=== PATIENT | female | born 1995 | race Caucasian/White ===

== ENCOUNTER 2025-02-15 15:09 | Outpatient (CLI) | payer BC, SELFPAY ==
--- OUTSIDE RECORDS SUMMARY | 2025-02-15 15:17 | XMS_ITS | Encounter Summary ---
Author Organization [facility] Address [address] [place] [address] Care Team Providers Care Geodetic Advisor Name Role Phone Sushila Davila MD Primary Care Provider [phone] Reason for Visit * Reason Onset Date Comments Med Refill 10/11/2024 Encounter Details Date Type Department Care Team (Late st Contact Info) Description 10/11/2024 Refill [facility] [address] [place] [address] Ami Soto, POLE PEELING MACHINE OPERATOR HELPER [address] [place] [address] BMI 35.0-35.9,adult Social History Tobacco Use Types Packs/Day Years Used Date Smoking Tobacco: Never Passive Smoke Exposure: Never Smokeless Tobacco: Never Alcohol Use Standard Drinks/Week Comments Never 0 (1 standard drink = 0.6 oz pur e alcohol) Humiliation, Afraid, Rape, and Kick questionnair e Answer Date Recorded Within the last year, have y ou been afraid of your partner or ex-partner? No 08/20/2024 Within the last year, have y ou been humiliated or emotionally abused in other ways by your partner or ex-partner? No Within the last year, have y ou been kicked, hit, slapped, or otherwise physically hurt by your partner or ex-partner? No 08/20/2024 Within the last year, have y ou been raped or forced to have any kind of sexual activity by your partner or ex-partner? No 08/20/2024 PHQ-2 Answer Date Recorded Patient Health Questionnaire-2 Score 4 08/20/2024 Hunger Vital Sign Answer Date Recorded Within the past 12 months, y ou worried that your food would run out before you got the money to buy more. Sometimes true Within the past 12 months, t he food you bought just didn't last and you didn't have money to get more. Sometimes true PRAPARE - Transportation Answer Date Re corded In the past 12 months, has l ack of transportation kept you from medical appointments or from getting medications? No 08/04 In the past 12 months, has l ack of transportation kept you from meetings, work, or from getting things needed for daily living? No 08/20/2024 Housing Stability Vital Sign Answer Tj e Recorded In the last 12 months, was t here a time when you were not able to pay the mortgage or rent on time? No 06/11/2024 In the last 12 months, how many places have you lived? 1 06/11/2024 In the last 12 months, was t here a time when you did not have a steady place to sleep or slept in a detention (including now)? No 06/11/2024 PHQ-9 Answer Date Recorded Patient Health Questionnaire-9 Score 17 08/20/2024 Housing Stability Vital Sign Answer Tj e Recorded In the last 12 months, was t here a time when you were not able to pay the mortgage or rent on time? No 08/20/2024 In the past 12 months, how m any times have you moved where you were living? 0 08/20/2024 At any time in the past 12 m [facility], were you homeless or living in a detention (including now)? No 08/20/2024 Utilities Answer Date Recorded In the past 12 months has th e electric, gas, oil, or water company threatened to shut off services in your home? No 08/20/2024 PHQ-2A Answer Date Recorded Patient Health Questionnaire-2 Score 0 04/25/2023 Comments No Sex and Gender Information Value Date Recorded Sex Assigned at Female 02/01/2021 9:38 AM EDT Legal Sex Female 7:29 PM EDT Gender Identity Female 02/01/2021 9:38 AM EDT Sexual Orientation Straight 02/01/2021 9: 38 AM EDT documented as of this encounter Miscellaneous Notes * Telephone Encounter - Cami Field RN - 10/14/2024 8:47 AM EDT Dose increase documented in this encounter Plan of Treatment Not on file documented as of this encounter Visit Diagnoses Diagnosis BMI 35.0-35.9,adult documented in this encounter Additional Health Concerns Assessment Noted Time PHQ-9 Depression Total Score: 17 025 7:30 AM EST A fall risk assessment has been complete d for the patient 02/21/2023 2:55 PM EDT A Body Mass Index follow-up plan has been documented for the patient 09/21/2024 10:20 AM EST documented as of this encounter Care Teams Geodetic Advisor Relationship Specialty Start Date End Date Sushila Davila MD [address] [place] [address] PCP - General Family Medicine 02/07/21 documented as of this encounter
--- OUTSIDE RECORDS SUMMARY | 2025-02-15 15:17 | XMS_ITS | Encounter Summary ---
Author Organization [facility] Address [address] [place] [address] Care Team Providers Care Maintenance Assistant Name Role Phone Sushila Davila MD Primary Care Provider [phone] Reason for Visit * Reason Onset Date Comments Med Refill 12/06/2024 Encounter Details Date Type Department Care Team (Late st Contact Info) Description 12/06/2024 Refill [facility] [address] [place] [address] Ivone Gonzalez MD [address] [place] [address] BMI 35.0-35.9,adult Social History Tobacco [...] place to sleep or slept in a mcc (including now)? No 06/11/2024 PHQ-9 Answer Date [...] any time in the past 12 m [facility], were you homeless or living in a mcc (including now)? No 08/20/2024 Utilities Answer Date [...] AM EDT documented as of this encounter Plan of Treatment Not on [...] documented as of this encounter Care Teams Maintenance Assistant Relationship Specialty Start Date End Date Sushila Davila MD [address] [place] [address] PCP - General Family Medicine 02/07/21 documented as of this encounter
--- OUTSIDE RECORDS SUMMARY | 2025-02-15 15:17 | XMS_ITS | Encounter Summary ---
Author Organization Healthcare Address [address] [place] [address] Care Team Providers Care Supervisor Shipping Room Name Role Phone Sushila Davila MD Primary Care Provider [phone] Encounter Details Date Type Department Care Team ([facility] st Contact Info) Description 03/08/2021 Outside Procedure External Location [address] [place] [address] Provider, [facility] Social History Tobacco Use Types Packs/Day Years Used Date Smoking Tobacco: Never Smokeless Tobacco: Never Alcohol Use Standard Drinks/Week Comments No 0 (1 standard drink = 0.6 oz pur e alcohol) PHQ-2 Answer Date Recorded Patient Health Questionnaire-2 Score 2 02/26/2021 Comments Unknown Sex and Gender Information Value Date Recorded Sex Assigned at Female 02/01/2021 9:38 AM EDT Legal Sex Female 7:29 PM EDT Gender Identity Female 02/01/2021 9:38 AM EDT Sexual Orientation Straight 02/01/2021 9: 38 AM EDT COVID-19 Exposure Response Date Recorded In the last month, have you been in contact with someone who was confirmed or suspected to have Coronavirus / COVID-19? No / Unsure 02/26/2021 8:18 AM EDT documented as of this encounter Plan of Treatment Not on file documented as of this encounter Procedures Procedure Name Priority Date/Time Associated Diagnosis Comments XR ELBOW RIGHT 3+ VIEWS 03/08/2021 5:24 PM EDT documented in this encounter Results * XR Elbow Right 3+ Views (03/08/2021 5:24 PM EDT) Anatomical Region Laterality Modality Upper Extremities, Elbow Right Radiogr aphic Imaging 03/08/2021 5:24 PM EDT Narrative 03/09/2021 7:38 [place] [address] Name: BRAXTON SOW Exam Date: 03/08/2021 : 1995 Age 25 Gender: F Physician: MAURICIO RICHARD Facility: [facility] Facility HSV: Outpatient Exam: ELBOW 3V RT Right elbow THREE VIEW HISTORY: Pain. FINDINGS: Three views show no evidence of an acute, displaced fracture or dislocation of the visualized bony architecture. The joint spaces appear normal. IMPRESSION: Unremarkable exam. Dictated By: TITO LOVE Transcribed By: Paolo Love Transcribed On: 03/09/2021 7:27 AM Electronically signed by: TITO LOVE 03/09/2021 Thank you for referring BRAXTON SOW to [facility]. Legally authenticated by KATE CARLOS 2021-03-09 07:27:56 Procedure Note Provider, [facility] - 03/09/2021 [place] [address] Name: BRAXTON SOW Exam Date: 03/08/2021 : 1995 Age 25 Gender: F Physician: MAURICIO RICHARD Facility: [facility] Facility HSV: Outpatient Exam: ELBOW 3V RT Right elbow THREE VIEW HISTORY: Pain. FINDINGS: Three views show no evidence of an acute, displaced fractureor dislocation of the visualized bony architecture. The joint spaces appear normal. IMPRESSION: Unremarkable exam. Dictated By: TITO LOVE Transcribed By: Paolo Love Transcribed On: 03/09/2021 7:27 AM Electronically signed by: TITO LOVE 03/09/2021 Thank you for referring BRAXTON SOW to [facility]. Legally authenticated by KATE CARLOS 2021-03-09 07:27:56 us Generic [place] Provider IMG XR PROCEDURES Fi nal Result documented in this encounter Visit Diagnoses Not on filedocumented in this encounter Additional Health Concerns Assessment Noted Time PHQ-9 Depression Total Score: 18 021 9:56 AM EDT documented as of this encounter Care Teams Supervisor Shipping Room Relationship Specialty Start Date End Date Sushila Davila MD [address] [place] [address] PCP - General Family Medicine 02/07/21 documented as of this encounter
--- OUTSIDE RECORDS SUMMARY | 2025-02-15 15:17 | XMS_ITS | Encounter Summary ---
Author Organization Healthcare Address [address] [place] [address] Care Team Providers Care Light Fixture Servicer Name Role Phone Sushila Davila MD Primary Care Provider [phone] Encounter Details Date Type Department Care Team (Late st Contact Info) Description 08/22/2023 Outside Procedure External Location [address] [place] [address] Sushila Davila MD [address] [place] [address] Social History Tobacco Use Types Packs/Day Years Used Date Smoking Tobacco: Never Smokeless Tobacco: Never Alcohol Use Standard Drinks/Week Comments Never 0 (1 standard drink = 0.6 oz pur e alcohol) PHQ-2 Answer Date Recorded Patient Health Questionnaire-2 Score 0 07/15/2023 PHQ-2A Answer Date Recorded Patient Health Questionnaire-2 [...] Name Priority Date/Time Associated Diagnosis Comments XR KNEE LEFT 3 VIEWS 08/22/2023 7:53 AM EST documented in this encounter Results * XR Knee Left 3 Views (08/22/2023 7:53 AM EST) Anatomical Region Laterality Modality Lower Extremities, Knee Left Digital Radiography 08/22/2023 7:53 AM EST Narrative 08/22/2023 9:00 [place] [address] Name: BRAXTON SOW Exam Date: 08/22/2023 : 1995 Age 28 Gender: F Physician: SUSHILA GATICA Facility: [facility] Facility HSV: Outpatient Exam: KNEE 3V LT LEFT KNEE SERIES HISTORY: Chronic left knee pain. COMPARISON: None. FINDINGS: 3 views of the left knee were performed. There is no acute, displaced fracture or dislocation of the visualized bony structures. Joint spaces are normal. No soft tissue abnormality is identified. There is no joint effusion. IMPRESSION: No acute process. Consider MR. The films were reviewed, interpreted, and dictated by Dr. Rohit Johnston Transcribed by Joaquina Guerrero PA-C Dictated By: ROHIT JOHNSTON Transcribed By: Rohit Johnston Transcribed On: 08/22/2023 8:44 AM Electronically signed by: ROHIT JOHNSTON 08/22/2023 Thank you for referring BRAXTON SOW to [facility]. Legally authenticated by POPE ROHIT Beckett 2023-08-22 08:44:50 Procedure Note Provider, Generic [place] - 08/22/2023 [place] [address] Name: BRAXTON SOW Exam Date: 08/22/2023 : 1995 Age 28 Gender: F Physician: SUSHILA GATICA Facility: [facility] Facility HSV: Outpatient Exam: KNEE 3V LT LEFT KNEE SERIES HISTORY: Chronic left knee pain. COMPARISON: None. FINDINGS: 3 views of the left knee were performed. There is no acute, displaced fracture or dislocation of the visualized bony structures.Joint spaces are normal. No soft tissue abnormality is identified. There is nojoint effusion. IMPRESSION: No acute process. Consider MR. The films were reviewed, interpreted, and dictated by Dr. Rohit Johnston Transcribed by Joaquina Guerrero PA-C Dictated By: ROHIT JOHNSTON Transcribed By: Rohit Johnston Transcribed On: 08/22/2023 8:44 AM Electronically signed by: ROHIT JOHNSTON 08/22/2023 Thank you for referring BRAXTON SOW to [facility]. Legally authenticated by POPE ROHIT Beckett 2023-08-22 08:44:50 us Sushila Davila MD IMG XR PROCEDURES Final Result documented in this encounter Visit Diagnoses Not on filedocumented in this encounter Additional Health Concerns Assessment Noted Time PHQ-9 Depression Total Score: 18 021 9:56 AM EDT A fall risk assessment has been complete d for the patient 02/21/2023 2:55 PM EDT A Body Mass Index follow-up plan has been documented for the patient 07/15/2023 11:17 AM EST documented as of this encounter Care Teams Light Fixture Servicer Relationship Specialty Start Date End Date Sushila Davila MD [address] [place] [address] PCP - General Family Medicine 02/07/21 documented as of this encounter
--- OUTSIDE RECORDS SUMMARY | 2025-02-15 15:17 | XMS_ITS | Encounter Summary ---
Author Organization Healthcare Address [address] [place] [address] Care Team Providers Care Third Grade Teacher Name Role Phone Sushila Davila MD Primary Care Provider [phone] Encounter Details Date Type Department Care Team ([facility] st Contact Info) Description 04/26/2021 Outside Procedure External Location [address] [place] [address] Provider, [facility] Social History Tobacco Use Types Packs/Day Years [...] Procedure Name Priority Date/Time Associated Diagnosis Comments FL INJ FOR SHOULDER RIGHT ARTHROGRAM 04/26/2021 9:02 AM EDT documented in this encounter Results * FL Inj for Shoulder Right Arthrogram (04/26/2021 9:02 AM EDT) Anatomical Region Laterality Modality Upper Extremities, Shoulder Right Radi ographic Imaging 04/26/2021 9:02 AM EDT Narrative 04/26/2021 10:09 [place] [address] Name: BRAXTON SOW Exam Date: 04/26/2021 : 1995 Age 25 Gender: F Physician: ALDAIR CROFT Facility: [facility] Facility HSV: Outpatient Exam: SP ARTHRO SHLDR RT Arthrogram Right shoulder injection for MRI arthrogram HISTORY: Right shoulder pain. PROCEDURE: After informed consent was obtained, a time-out was performed. Utilizing local anesthesia and sterile technique, with direct fluoroscopic guidance, access to the joint was obtained . A small amount of contrast was injected to confirm needle tip location. Additional gadolinium contrast was injected. IMPRESSION: Status post injection for MRI arthrogram without immediate complication. Please see MRI report. FLUOROSCOPY TIME: 0.6 minutes Films reviewed , interpreted and dictated by Dr. Love. Transcribed by Arun Leone PA-C. Dictated By: TITO LOVE Transcribed By: Paolo Love Transcribed On: 04/26/2021 9:57 AM Electronically signed by: TITO LOVE 04/26/2021 Thank you for referring BRAXTON SOW to [facility]. Legally authenticated by KATE CARLOS 2021-04-26 09:57:33 Procedure Note Provider, Generic [place] - 04/26/2021 [place] [address] Name: BRAXTON SOW Exam Date: 04/26/2021 : 1995 Age 25 Gender: F Physician: ALDAIR CROFT Facility: [facility] Facility HSV: Outpatient Exam: SP ARTHRO SHLDR RT Arthrogram Right shoulder injection for MRI arthrogram HISTORY: Right shoulder pain. PROCEDURE: After informed consent was obtained, a time-out wasperformed. Utilizing local anesthesia and sterile technique, with directfluoroscopic guidance, access to the joint was obtained . A small amount of contrastwas injected to confirm needle tip location. Additional gadolinium contrastwas injected. IMPRESSION: Status post injection for MRI arthrogram without immediate complication. Please see MRI report. FLUOROSCOPY TIME: 0.6 minutes Films reviewed , interpreted and dictated by Dr. Love. Transcribed by Arun Leone PA-C. Dictated By: TITO LOVE Transcribed By: Paolo Love Transcribed On: 04/26/2021 9:57 AM Electronically signed by: TITO LOVE 04/26/2021 Thank you for referring BRAXTON SOW to [facility]. Legally authenticated by KATE CARLOS 2021-04-26 09:57:33 Generic [place] Provider IMG FLUOROSCOPY PROC EDURES Final Result documented in this encounter Visit Diagnoses Not on filedocumented in this encounter Additional Health Concerns Assessment Noted Time PHQ-9 Depression Total Score: 18 021 9:56 AM EDT documented as of this encounter Care Teams Third Grade Teacher Relationship Specialty Start Date End Date Sushila Davila MD [address] [place] [address] PCP - General Family Medicine 02/07/21 documented as of this encounter
--- OUTSIDE RECORDS SUMMARY | 2025-02-15 15:17 | XMS_ITS | Clinical Summary ---
Author Organization [facility] Address [address] [place] [address] Care Team Providers Care Application Packager Name Role Phone Sushila Davila MD Primary Care Provider [phone] Allergies Active Allergy Reactions Criticality Noted Date Comments Naproxen Other - please docum ent in the comment field Low 11/20/2016 Stomach ulcers Medications acetaminophen (Tylenol) 500 MG tablet Take 1 tablet (500 mg) by mouth every 6 hours as needed for pain. Active buPROPion XL (Wellbutrin XL) 300 MG 24 hr tabletIndication s:Major depressive disorder, recurrent, moderate (CMS/HCC),Genera lized anxiety disorder Take 1 tablet (300 mg) by mouth every morning. Do not crush, chew, or split. 90 tablet 3 09/21/2024 Active Semaglutide-Weig ht Management (Wegovy) 1.7 MG/0.75ML solution auto-injectorInd ications:BMI 35.0-35.9,adult Inject 1.7 mg under the skin 1 (one) time per week. 3 mL 2 11/12/2024 Active Semaglutide-Weig ht Management (Wegovy) 2.4 MG/0.75ML solution auto-injector Inject 2.4 mg under the skin 1 time per week. 3 mL 5 12/08/2024 Active Active Problems Problem Noted Date Diagnosed Date Left wrist pain 02/26/2021 Left wrist tendonitis 02/26/2021 Depression 12/27/2020 Situational anxiety 12/27/2020 Resolved Problems Problem Noted Date Diagnosed Date Resolved Date Right rotator cuff tear 12/27/202007/04 Encounters Date Type Department Care Team Description 12/08/2024 Refill [facility] [address] [address] Sushila Davila MD 12/06/2024 Refill [facility] [address] [place] [address] Ivone Gonzalez MD BMI 35.0-35.9,adult from Last 3 Months Family History Medical History Relation Name Comments No Known Problems Father No Known Problems Father's Brother No Known Problems Father's Sister 1 No Known Problems Father's Sister 2 No Known Problems Maternal Grandfather Multiple myeloma Maternal Grandmother Alcohol abuse Mother Vijaya Asthma Mother Vijaya Blood clots Mother Vijaya Drug abuse Mother Vijaya No Known Problems Mother's Brother No Known Problems Mother's Sister No Known Problems Paternal Grandfather Diabetes Paternal Grandmother Sugey No Known Problems Sister Relation Name Status Comments Father Alive Father's Brother Alive Father's Sister 1 Alive Father's Sister 2 Maternal Grandfather Alive Maternal Grandmother Mother Vijaya Alive Mother's Brother Alive Mother's Sister Alive Paternal Grandfather Paternal Grandmother Sugey Sister Alive Social History Tobacco Use Types Packs/Day Years Used Date Smoking Tobacco: Never Passive Smoke Exposure: Never Smokeless Tobacco: Never Tobacco Cessation:Counseling Given: Not Answered Alcohol Use Standard Drinks/Week Comments Never 0 [...] place to sleep or slept in a care home (including now)? No 06/11/2024 PHQ-9 Answer Date [...] any time in the past 12 m [facility], were you homeless or living in a care home (including now)? No 08/20/2024 Utilities Answer Date [...] Orientation Straight 02/01/2021 9: 38 AM EDT Last Filed Vital Signs Vital Sign Reading Time Taken Comments Blood Pressure 114/68 09/21/2024 9:52 AM EST Pulse 85 09/21/2024 9:52 AM EST Temperature 36.7 C (98 F) 09/21/2024 9:52 AM EST Respiratory Rate 18 08/20/2024 7:30 AM EST Oxygen Saturation 98% 09/21/2024 9:52 AM EST Inhaled Oxygen Concentration - - Weight 108 kg (238 lb 15.7 oz) 09/21/2024 9:52 A M EST Height 175.3 cm (5' 9 ) 09/21/2024 9:52 AM EST Body Mass Index 35.29 09/21/2024 9:52 AM EST Plan of Treatment Health Maintenance Due Date Last Done Comments [facility]-HIV Screening 1995 [facility]-Hepatitis C Screening 1995 [facility]-Infant/Child/Adol SDOH Screenings 1995 [facility]-Varicella Vaccines (1 of 2 - 13+ 2-dose series) 2008 HPV Vaccines (1 - 3-dose series) 2010 [facility]-DTaP,Tdap,and Td Vaccines (1 - Tdap) 2014 [facility]-Hepatitis B Vaccines (1 of 3 - 19+ 3-dose series) 2014 [facility]-Pap Smear 2016 [facility]-FRBSC-04 Vaccine (3 - 2023- season) 2024 11/23/2020, 11/02/2020 [facility]- SDOH Screenings 02/17/2025 [facility]-Adult SDOH Screenings 02/17/2025 08/20/2024 [facility]-Influenza Vaccine (#1) 2025 [facility]-Depression Screening 08/20/2025 08/20/2024, 08/04 [facility]-Zoster Vaccines (1 of 2) 2045 [facility]-Obesity Intervention Completed 025, 08/20/2024, 06/11/2024, Additional history exists [facility]-HIB Vaccines Aged Out No longer e ligible based on patient's age to complete this topic [facility]-Hepatitis A Vaccines Aged Out No longer eligible based on patient's age to complete this topic [facility]-IPV Vaccines Aged Out No longer e ligible based on patient's age to complete this topic [facility]-Pneumococcal Vaccine: Pediatrics (0 to 5 Years) and At-Risk Patients (6 to 49 Years) Aged Out No longer eligible based on patient's age to complete this topic [facility]-Rotavirus Vaccines Aged Out No lo nger eligible based on patient's age to complete this topic Insurance [employer] TO Care Teams Application Packager Relationship Specialty Start Date End Date Sushila Davila MD [address] [place] [address] PCP - General Family Medicine 02/07/21
--- OUTSIDE RECORDS SUMMARY | 2025-02-15 15:17 | XMS_ITS | Encounter Summary ---
Author Organization Healthcare Address [address] [place] [address] Care Team Providers Care Data Capture Clerk Name Role Phone Sushila Davila MD Primary Care Provider [phone] Encounter Details Date Type Department Care Team ([facility] st Contact Info) Description 07/10/2021 Outside Procedure External Location [address] [place] [address] Provider, [facility] Social History Tobacco Use Types Packs/Day Years Used Date Smoking Tobacco: Never Smokeless Tobacco: Never Alcohol Use Standard Drinks/Week Comments No 0 (1 standard drink = 0.6 oz pur e alcohol) PHQ-2 Answer Date Recorded PHQ-2 Score 6 05/08/2021 Comments Unknown Sex and Gender Information Value Date Recorded Sex Assigned at Female 02/01/2021 9:38 AM EDT Legal Sex Female 7:29 PM EDT Gender Identity Female 02/01/2021 9:38 AM EDT Sexual Orientation Straight 02/01/2021 9: 38 AM EDT documented as of this encounter Plan of Treatment Not on file documented as of this encounter Procedures Procedure Name Priority Date/Time Associated Diagnosis Comments MR CERVICAL SPINE WO IV CONTRAST 07/10/2021 8:00 AM EST documented in this encounter Results * MR Cervical Spine wo IV Contrast (07/10/2021 8:00 AM EST) Anatomical Region Laterality Modality C-spine Magnetic Resonan ce 07/10/2021 8:00 AM EST Narrative 07/10/2021 9:34 AM EST [place] [id number] Name: BRAXTON SOW Exam Date: 07/10/2021 : 1995 Age 26 Gender: F Physician: ALDAIR CROFT Facility: [facility] Facility HSV: Outpatient Exam: MRI CERVICAL SPINE W/O FINAL REPORT TECHNIQUE: Multiplanar and multisequence imaging of the cervical spine was obtained. CLINICAL HISTORY: neck pain numbness in right arm no known trauma or injury FINDINGS: Alignment is normal. Vertebral body height is preserved. Signal intensity within the substance of the spinal cord is normal. Bone marrow signal intensity is normal. Paraspinal soft tissues are within normal limits. C2/3: There is no focal disc herniation, central stenosis or neural foraminal narrowing. C3/4: There is no focal disc herniation, central stenosis or neural foraminal narrowing. C4/5: There is no focal disc herniation, central stenosis or neural foraminal narrowing. C5/6: There is no focal disc herniation, central stenosis or neural foraminal narrowing. C6/7: There is no focal disc herniation, central stenosis or neural foraminal narrowing. C7/T1: There is no focal disc herniation, central stenosis or neural foraminal narrowing. IMPRESSION: No focal disc herniation, central stenosis, or neural foraminal narrowing. Reviewed, Interpreted and Dictated by Mari Onofre MD Transcribed by Morena Rodriguez Authenticated by Mari Onofre MD on 07/10/2021 09:23:45 [facility]AST[facility] Dictated By: MARI ONOFRE Transcribed By: Transcribed On: 07/10/2021 9:23 AM Electronically signed by: MARI ONOFRE 07/10/2021 Thank you for referring BRAXTON SOW to [facility]. Legally authenticated by JEMIMA MEREDITH 2021-07-10 09:23:45 Procedure Note Provider, [facility] [place] - 07/10/2021 [place] [id number] Name: BRAXTON SOW Exam Date: 07/10/2021 : 1995 Age 26 Gender: F Physician: ALDAIR CROFT Facility: [facility] Facility HSV: Outpatient Exam: MRI CERVICAL SPINE W/O FINAL REPORT TECHNIQUE: Multiplanar and multisequence imaging of the cervical spine was obtained. CLINICAL HISTORY: neck pain numbness in right arm no known trauma or injury FINDINGS: Alignment is normal. Vertebral body height is preserved. Signal intensity within the substance of the spinal cord is normal. Bone marrow signal intensity is normal. Paraspinal soft tissues are within normal limits. C2/3: There is no focal disc herniation, central stenosis or neural foraminal narrowing. C3/4: There is no focal disc herniation, central stenosis or neural foraminal narrowing. C4/5: There is no focal disc herniation, central stenosis or neural foraminal narrowing. C5/6: There is no focal disc herniation, central stenosis or neural foraminal narrowing. C6/7: There is no focal disc herniation, central stenosis or neural foraminal narrowing. C7/T1: There is no focal disc herniation, central stenosis or neural foraminal narrowing. IMPRESSION: No focal disc herniation, central stenosis, or neural foraminal narrowing. Reviewed, Interpreted and Dictated by Mari Onofre MD Transcribed by Morena Rodriguez Authenticated by Mari Onofre MD on 07/10/2021 09:23:45 [facility] Dictated By: MARI ONOFRE Transcribed By: Transcribed On: 07/10/2021 9:23 AM Electronically signed by: MARI ONOFRE 07/10/2021 Thank you for referring BRAXTON SOW to [facility]. Legally authenticated by JEMIMA MEREDITH 2021-07-10 09:23:45 us Generic [place] Provider IMG MRI PROCEDURES F inal Result documented in this encounter Visit Diagnoses Not on filedocumented in this encounter Additional Health Concerns Assessment Noted Time PHQ-9 Depression Total Score: 18 02/01/ 021 9:56 AM EDT documented as of this encounter Care Teams Data Capture Clerk Relationship Specialty Start Date End Date Sushila Davila MD [address] [place] [phone] PCP - General Family Medicine 02/07/21 documented as of this encounter
--- OUTSIDE RECORDS SUMMARY | 2025-02-15 15:17 | XMS_ITS | Data Portability ---
Author Organization [place] - Teja walls MD, Main Office Address [address] [place] [address], [address] [place] [address] Care Team Providers Care Field Assistant Name Role Phone LIA VICTOR Petroleum Analyst Assessment No assessment recorded. Plan of Treatment Reminders Order Date Submit Date Provider Last Modified By Organization Details Last Modified Time Details Appointments None record ed. Lab None record ed. Referral None record ed. Procedures None record ed. Surgeries None record ed. Imaging None record ed. Medication Orders None record ed. Patient TargetsNo targets recorded. Patient Instructions Encounter Date Encounter Id Patient Instructions Last Modified By Organization Details Last Modified Time 10/10/2022 [id number] Numbness and Tingling: Care Instructions Not available 10/10/2022 10:14:43 11/26/2022 [id number] Numbness and Tingling: Care Instructions Not available 11/26/2022 10:10:20 Reason for Referral None Reported. Results Created Date Observation Date Name Description Value Unit Range Abnormal Flag Note LastModifiedBy Organization Detail LastModifiedTime 10/11/1910/10/2022 elect romyo gram + nerve condu ction study No observ ation record ed. [email or web address] Not Available 2022 10:53:44 11/27/19 23 11/26/2022 elect romyo gram + nerve condu ction study No observ ation record ed. BARCODE Not Available 2022 15:36:17 Result Notes None recorded. Problems No Known Problems Procedures Surgical History Date Name Laterality Status Provider Name and Address Organization Details Recorded Time 11/26/2022 NCV/EMG completed Bennett Welch MD 11/26/2022 10:10:10 10/10/2022 NCV/EMG completed Bennett Welch MD 10/10/2022 10:14:37 Imaging Results None recorded. Procedure Notes None recorded. Medical Equipment None Reported. Allergies No known drug allergies Medications Name Sig Start Date Stop Date Status Note LastModified by Organization Details LastModified Time amoxicillin 500 mg capsule TAKE 1 CAPSULE BY MOUTH THREE TIMES DAILY active Not Available Not Available No t Available neomycin-polym yxin-hydrocort 3.5 mg/mL-10,000 unit/mL-1 % ear solution INSTILL 2 DROPS INTO AFFECTED EAR(S) 4 TIMES DAILY FOR 7 DAYS active Not Available Not Available No t Available triazolam 0.25 mg tablet TAKE 1 TABLET BY MOUTH ONE HOUR BEFORE APPOINTME NT. BRING 2 TABLETS WITH YOU TO APPOINTME NT. active Not Available Not Available No t Available hydrocodone 5 mg-acetaminoph en 325 mg tablet TAKE 1 TABLET BY MOUTH EVERY 4 TO 6 HOURS NEEDED FOR PAIN active Not Available Not Available No t Available promethazine 12.5 mg tablet TAKE 1 TO 2 TABLETS BY MOUTH EVERY 6 HOURS NEEDED FOR NAUSEA active Not Available Not Available No t Available prednisone 5 mg tablets in a dose pack TAKE 6 TABLETS ON DAY 1 THEN TAKE 5 TABLETS ON DAY 2 THEN TAKE 4 TABLETS ON DAY 3 THEN TAKE 3 TABLETS ON DAY 4 THEN TAKE 2 TABLETS ON DAY 5 THEN TAKE 1 TABLET ON DAY 6. TAKE ALL DOSES WITH FOOD. active Not Available Not Available No t Available methylpredniso lone 4 mg tablets in a dose pack TAKE BY MOUTH DIRECTED ON INSIDE OF PACKAGE active Not Available Not Available No t Available chlorhexidine gluconate 0.12 % mouthwash SWISH AND SPIT 5 TO 10 ML IN MOUTH TWICE DAILY FOR 2 WEEKS active Not Available Not Available No t Available Stahist AD 25 mg-60 mg tablet TAKE 1 TABLET BY MOUTH EVERY 12 HOURS active Not Available Not Available No t Available Vitals None Recorded Social History None recorded. Functional Status None recorded. Mental Status None recorded. Family History Nothing Reported. Medical History No medical history recorded. Gynecological HistoryNo gynecological history recorded. Obstetrics History GPAL:G 0 P 0 0 0 0 Past Encounters Encounter ID Performer Location Encounter Start Date Encounter Closed Date Diagnosis/Indication Diagnosis SNOMED-CT Code Diagnosis ICD10 Code Diagnosis Note [id number] Teja Welch MD Main Office [address] [facility], [address] [place] [address] 10/10/2022 09:44:54 10/10/2022 10:16:46 Paresthesia 87680166 R20.2 No evidence of CTS or other focal nerve entrapment . [id number] Teja Welch MD Main Office [address] [place] [address] 11/26/2022 09:37:11 11/26/2022 10:11:15 Paresthesia 96897153 R20.2 Health Concerns Section Related Observation LastModified by Organization Detai ls LastModified Time None Recorded Concern Status LastModified by Organization Details LastModified Time None Recorded Advance Directives Directive None Recorded Payers Insurance Date Sequence Insurance Name Policy Number Policy Tavera Covered Member ID Tavera Member ID Guarantor Name 09/16/2022 SLIDING FEE SCHEDULE - DISCOUNT Say Sow 11/20/2022 ZULEIKA Sow OBGyn Episode No OBEpisode recorded.
--- OUTSIDE RECORDS SUMMARY | 2025-02-15 15:17 | XMS_ITS | Encounter Summary ---
Author Organization Healthcare Address [address] [place] [address] Care Team Providers Care Wax Engraver Name Role Phone Sushila Davila MD Primary Care Provider [phone] Encounter Details Date Type Department Care Team (Late st Contact Info) Description 08/22/2023 Outside Procedure External Location [address] [place] [address] Sushila Davila MD [address] [place] [phone] Social History Tobacco Use Types Packs/Day [...] Name Priority Date/Time Associated Diagnosis Comments XR HIP LEFT 2 OR 3 VIEWS 08/22/2023 7:52 AM EST documented in this encounter Results * XR Hip Left 2 or 3 Views (08/22/2023 7:52 AM EST) Anatomical Region Laterality Modality Lower Extremities, Hip Left Digital R adiography 08/22/2023 7:52 AM EST Narrative 08/22/2023 9:00 [place] [address] Name: BRAXTON SOW Exam Date: 08/22/2023 : 1995 Age 28 Gender: F Physician: SUSHILA GTAICA Facility: [facility] Facility HSV: Outpatient Exam: HIP 2 VIEW LT LEFT HIP SERIES HISTORY: Acute left hip pain. COMPARISON: None. FINDINGS: 2 views of the left hip were performed. There is no acute, displaced fracture or dislocation of the visualized bony structures. Joint spaces are normal. No soft tissue abnormality is identified. IMPRESSION: No acute process. Consider MR. The films were reviewed, interpreted, and dictated by Dr. Rohit Johnston Transcribed by Joaquina Guerrero PA-C Dictated By: ROHIT JOHNSTON Transcribed By: Rohit Johnston Transcribed On: 08/22/2023 8:44 AM Electronically signed by: ROHIT JOHNSTON 08/22/2023 Thank you for referring BRAXTON SOW to [facility]. Legally authenticated by POPE ROHIT Beckett 2023-08-22 08:44:27 Procedure Note Provider, Generic [place] - 08/22/2023 [place] [address] Name: BRAXTON SOW Exam Date: 08/22/2023 : 1995 Age 28 Gender: F Physician: SUSHILA GATICA Facility: [facility] Facility HSV: Outpatient Exam: HIP 2 VIEW LT LEFT HIP SERIES HISTORY: Acute left hip pain. COMPARISON: None. FINDINGS: 2 views of the left hip were performed. There is no acute,displaced fracture or dislocation of the visualized bony structures. Joint spacesare normal. No soft tissue abnormality is identified. IMPRESSION: No acute process. Consider MR. The films were reviewed, interpreted, and dictated by Dr. Rohit Johnston Transcribed by Joaquina Guerrero PA-C Dictated By: ROHIT JOHNSTON Transcribed By: Rohit Johnston Transcribed On: 08/22/2023 8:44 AM Electronically signed by: ROHIT JOHNSTON 08/22/2023 Thank you for referring BRAXTON SOW to [facility]. Legally authenticated by POPE ROHIT Beckett 2023-08-22 08:44:27 Sushila Davila MD IMG XR PROCEDURES Final [...] documented as of this encounter Care Teams Wax Engraver Relationship Specialty Start Date End Date Sushila Davila MD [address] [place] [address] PCP - General Family Medicine 02/07/21 documented as of this encounter
--- OUTSIDE RECORDS SUMMARY | 2025-02-15 15:17 | XMS_ITS | Encounter Summary ---
Author Organization Healthcare Address [address] [place] [address] Care Team Providers Care Account Services Coordinator Name Role Phone Sushila Davila MD Primary Care Provider Encounter Details Date Type Department Care Team ([facility] st Contact Info) Description 03/08/2021 Outside Procedure External Location [address] [place] [address] Provider, [facility] Social History Tobacco Use Types Packs/Day Years [...] Name Priority Date/Time Associated Diagnosis Comments XR FOOT RIGHT 3+ VIEWS 03/08/2021 5:24 PM EDT documented in this encounter Results * XR Foot Right 3+ Views (03/08/2021 5:24 PM EDT) Anatomical Region Laterality Modality Lower Extremities, Foot Right Radiogra [facility] 03/08/2021 5:24 PM EDT Narrative 03/09/2021 7:38 [place] [address] Name: BRAXTON SOW Exam Date: 03/08/2021 : 1995 Age 25 Gender: F Physician: MAURICIO RICHARD Facility: [facility] Facility HSV: Outpatient Exam: FOOT RT 3V Right foot THREE VIEW HISTORY: Pain. FINDINGS: Three views show no evidence of an acute, displaced fracture or dislocation of the visualized bony architecture. The joint spaces appear normal. IMPRESSION: Unremarkable exam. Dictated By: TITO LOVE Transcribed By: Paolo Love Transcribed On: 03/09/2021 7:27 AM Electronically signed by: TITO LOVE 03/09/2021 Thank you for referring BRAXTON SOW to [facility]. Legally authenticated by KATE CARLOS 2021-03-09 07:27:05 Procedure Note Provider, [facility] - 03/09/2021 [place] [address] Name: BRAXTON SOW Exam Date: 03/08/2021 : 1995 Age 25 Gender: F Physician: MAURICIO RICHARD Facility: [facility] Facility HSV: Outpatient Exam: FOOT RT 3V Right foot THREE VIEW HISTORY: Pain. FINDINGS: Three views show no evidence of an acute, displaced fractureor dislocation of the visualized bony architecture. The joint spaces appear normal. IMPRESSION: Unremarkable exam. Dictated By: TIOT LOVE Transcribed By: Paolo Love Transcribed On: 03/09/2021 7:27 AM Electronically signed by: TITO LOVE 03/09/2021 Thank you for referring DEWEY BRAXTON to [facility]. Legally authenticated by KATE CARLOS 2021-03-09 07:27:05 us Generic [place] Provider IMG XR PROCEDURES Fi nal Result documented in this encounter Visit Diagnoses Not on filedocumented in this encounter Additional Health Concerns Assessment Noted Time PHQ-9 Depression Total Score: 18 021 9:56 AM EDT documented as of this encounter Care Teams Account Services Coordinator Relationship Specialty Start Date End Date Sushila Davila MD [address] [place] [address] PCP - General Family Medicine 02/07/21 documented as of this encounter
--- OUTSIDE RECORDS SUMMARY | 2025-02-15 15:17 | XMS_ITS | Clinical Summary ---
Author Organization [facility] Address [address] [place] [address] Phone [email or web address] Care Team Providers Care Manufacturing Production Technician Name Role Phone Unavailable Primary Care Provider Unavailabl e Allergies Active Allergy Reactions Criticality Noted Date Comments Naproxen Low 11/20/2016 Other reaction(s): Unknown Medications buPROPion XL (WELLBUTRIN XL) 300 MG 24 hr tablet Take 300 mg by mouth. Active Semaglutide-We ight Management (Wegovy 1 MG/0.5ML SC) 1 MG/0.5ML solution auto-injector INJECT 1 SYRINGE SUBCUTANEOUSLY ONCE A WEEK Active Active Problems No known active problems Social History Tobacco Use Types Packs/Day Years Used Date Smoking Tobacco: Never Smokeless Tobacco: Never Tobacco Cessation:Counseling Given: Not Answered Intimate Partner Violence Answer Date R ecorded Insults You Not on file 11/18/2020 Threatens You Not on file 11/18/2020 Screams at You Not on file 11/18/2020 Physically Hurt Not on file 11/18/2020 Intimate Partner Violence Score Not on file 11/18/2020 Depression Answer Date Recorded PHQ Total Score 0 02/08/2025 Stress Answer Date Recorded Stress in your Life Not on file 06/09/2024 Dealing with Stress 3 06/09/2024 Comments Unknown Sex and Gender Information Value Date Recorded Sex Assigned at Female 07/16/2022 3:53 PM DEVELOPMENT AND HOUSING DIRECTOR Legal Sex Female 12:07 AM DEVELOPMENT AND HOUSING DIRECTOR Gender Identity Female 07/16/2022 3:53 PM DEVELOPMENT AND HOUSING DIRECTOR Sexual Orientation Not on file Last Filed Vital Signs Vital Sign Reading Time Taken Comments Blood Pressure 123/83 10/26/2024 12:00 AM EDT Pulse 95 10/26/2024 12:00 AM EDT Temperature 36.7 C (98.1 F) 10/26/2024 12:00 AM EDT Respiratory Rate 16 10/26/2024 12:00 AM EDT Oxygen Saturation 96% 10/26/2024 12:00 AM EDT Inhaled Oxygen Concentration - - Weight 106 kg (232 lb 9.6 oz) 05/05/2024 7:50 PM EDT Height 175.3 cm (5' 9 ) 05/05/2024 7:50 PM EDT Body Mass Index 34.35 05/05/2024 7:50 PM EDT Plan of Treatment Health Maintenance Due Date Last Done Comments Dental Cleaning/Exam 1995 HIV Screening 1995 Hepatitis C Screening 1995 Cervical Cancer Screening 2011 Hep B Infection Screening - Triple Screen 2013 Hepatitis B Immunization (1 of 3 - 19+ 3-dose series) 2014 Tetanus Diphtheria and Pertussis Immunization (1 - Tdap) 2014 Annual Preventive Exam 07/10/2023 07/10/2022 Covid-19 Immunization ( season) 2024 11/23/2020, 11/02/2020 Influenza Immunization (#1) 2025 HIB Immunization Aged Out No longer e ligible based on patient's age to complete this topic HPV Immunization Aged Out No longer e ligible based on patient's age to complete this topic Hepatitis A Immunization Aged Out No longer eligible based on patient's age to complete this topic Pneumococcal: Ped (0 to 5 Yrs) and At-Risk Member (6 to 64 Yrs) Aged Out No longer eligible b ased on patient's age to complete this topic Polio Immunization Aged Out No longer eligible based on patient's age to complete this topic Varicella Immunization Aged Out No lo nger eligible based on patient's age to complete this topic Insurance OPT OUT NO COPAY NB
--- OUTSIDE RECORDS SUMMARY | 2025-02-15 15:17 | XMS_ITS | Encounter Summary ---
Author Organization Healthcare Address [address] [place] [address] Care Team Providers Care Railroad Watchman Name Role Phone Sushila Davila MD Primary Care Provider [phone] Reason for Referral * Consultation (Routine) - Closed Specialty Diagnoses / Procedures Referred By Contac t Referred To Contact Orthopaedic Surgery Diagnoses Pain in right ankle and joints of right foot Community [facility] [address] [place] [address] Ty Melton MD [address] [facility] [address] [place] [address] Phone: tel: fax: Referral ID Status Reason Start Date Expiration Date Visits Re quested Visits Authorized [id number] Closed 2022 12/10/2023 1 1 Encounter Details Date Type Department Care Team (Late st Contact Info) Description 2022 [facility] [address] [place] [address] Porfirio Giang Pain in right ankle and joints of right foot (Primary Dx) Social History Tobacco Use Types Packs/Day Years Used Date Smoking Tobacco: Never Smokeless Tobacco: Never Alcohol Use Standard Drinks/Week Comments No 0 (1 standard drink = 0.6 oz pur e alcohol) PHQ-2 Answer Date Recorded PHQ-2 Score 6 07/23/2021 Comments Unknown Sex and Gender Information Value Date Recorded Sex Assigned at Female 02/01/2021 9:38 AM EDT Legal Sex Female 7:29 PM EDT Gender Identity Female 02/01/2021 9:38 AM EDT Sexual Orientation Straight 02/01/2021 9: 38 AM EDT documented as of this encounter Plan of Treatment Scheduled Referrals Name Type Priority Associated Diagnoses Order Schedule Ambulatory referral to Orthopaedics Foot/Ankle Outpatient Referral Routine Pain in right ankle and joints of right foot Expected: 2022 (Approximate), Expires: 12/09/2023 documented as of this encounter Visit Diagnoses Diagnosis Pain in right ankle and joints of right foot- Primary documented in this encounter Additional Health Concerns Assessment Noted Time PHQ-9 Depression Total Score: 18 021 9:56 AM EDT documented as of this encounter Care Teams Railroad Watchman Relationship Specialty Start Date End Date Sushila Davila MD [address] [place] [address] PCP - General Family Medicine 02/07/21 documented as of this encounter
--- OUTSIDE RECORDS SUMMARY | 2025-02-15 15:17 | XMS_ITS | Encounter Summary ---
Author Organization Healthcare Address [address] [place] [address] Care Team Providers Care Policy Adviser Name Role Phone Sushila Davila MD Primary Care Provider [phone] Encounter Details Date Type Department Care Team (Late st Contact Info) Description 04/26/2021 Outside Procedure External Location [address] [place] [address] Provider, [facility] Social History Tobacco Use Types Packs/Day Years [...] Name Priority Date/Time Associated Diagnosis Comments MR SHOULDER RIGHT WO IV CONTRAST 04/26/2021 9:02 AM EDT documented in this encounter Results * MR Shoulder Right wo IV Contrast (04/26/2021 9:02 AM EDT) Anatomical Region Laterality Modality Upper Extremities Right Magnetic Reson ance 04/26/2021 9:02 AM EDT Narrative 04/26/2021 3:30 [place] [address] Name: BRAXTON SOW Exam Date: 04/26/2021 : 1995 Age 25 Gender: F Physician: ALDAIR CROFT Facility: [facility] Facility HSV: Outpatient Exam: MRI SHOULDER W/O RIGHT FINAL REPORT CLINICAL HISTORY: arthrogram right shoulder pain previous MRI 01/23/21 COMPARISON: January 23, 2021 FINDINGS: Multi planar MR imaging of the right shoulder was performed after the intra-articular injection of dilute gadolinium contrast. Contrast is seen throughout the shoulder joint space. The supraspinatus tendon appears intact. On coronal T2 fat saturation images there is mild edema overlying the distal supraspinatus tendon which may be due to mild tendinitis. There is no abnormal communication between the joint space and the subacromial/subdeltoid bursa. On the axial images the anterior and posterior glenoid aure appear intact. The biceps tendon appears intact. The acromioclavicular joint is intact. IMPRESSION: No evidence of rotator cuff tendon tear or labral tear. Reviewed, Interpreted and Dictated by Alphonso Zarco MD Transcribed by Blaise Giang Authenticated by Alphonso Zarco MD on 04/26/2021 03:18:56 PMEASTERN Dictated By: ALPHONSO ZARCO Transcribed By: Transcribed On: 04/26/2021 3:18 PM Electronically signed by: ALPHONSO ZARCO 04/26/2021 Thank you for referring SOWBRAXTON DE JESUS to [facility]. Legally authenticated by MARQUIS Rowland 2021-04-26 15:18:56 Procedure Note Provider, [facility] [place] - 04/26/2021 [place] [id number] Name: BRAXTON SOW Exam Date: 04/26/2021 : 1995 Age 25 Gender: F Physician: ALDAIR CROFT Facility: [facility] Facility HSV: Outpatient Exam: MRI SHOULDER W/O RIGHT FINAL REPORT CLINICAL HISTORY: arthrogram right shoulder pain previous MRI 01/23/21 COMPARISON: January 23, 2021 FINDINGS: Multi planar MR imaging of the right shoulder was performed after the intra-articular injection of dilute gadolinium contrast. Contrast is seen throughout the shoulder joint space. The supraspinatus tendon appears intact. On coronal T2 fat saturation images there is mild edema overlying the distal supraspinatus tendon which may be due to mild tendinitis. There is no abnormal communication between the joint space and the subacromial/subdeltoid bursa. On the axial images the anterior and posterior glenoid aure appear intact. The biceps tendon appears intact. The acromioclavicular joint is intact. IMPRESSION: No evidence of rotator cuff tendon tear or labral tear. Reviewed, Interpreted and Dictated by Alphonso Zarco MD Transcribed by Blaise Giang Authenticated by Alphonso Zarco MD on 04/26/2021 03:18:56 PMEASTERN Dictated By: ALPHONSO ZARCO Transcribed By: Transcribed On: 04/26/2021 3:18 PM Electronically signed by: ALPHONSO ZARCO 04/26/2021 Thank you for referring BRAXTON SOW to [facility]. Legally authenticated by MARQUIS Rowland 2021-04-26 15:18:56 us [facility] [place] Provider IMG MRI PROCEDURES F inal Result documented in this encounter Visit Diagnoses Not on filedocumented in this encounter Additional Health Concerns Assessment Noted Time PHQ-9 Depression Total Score: 18 021 9:56 AM EDT documented as of this encounter Care Teams Policy Adviser Relationship Specialty Start Date End Date Sushila Davila MD [address] [place] [address] PCP - General Family Medicine 02/07/21 documented as of this encounter
--- OUTSIDE RECORDS SUMMARY | 2025-02-15 15:17 | XMS_ITS | Encounter Summary ---
Author Organization Healthcare Address [address] [place] [address] Care Team Providers Care Preparation Operator Name Role Phone Sushila Davila MD Primary Care Provider [phone] Encounter Details Date Type Department Care Team ([facility] st Contact Info) Description 03/08/2021 Outside Procedure External Location [address] [place] [address] Provider, [facility] Social History Tobacco Use Types Packs/Day Years [...] Name Priority Date/Time Associated Diagnosis Comments XR ANKLE RIGHT 3+ VIEWS 03/08/2021 5:24 PM EDT documented in this encounter Results * XR Ankle Right 3+ Views (03/08/2021 5:24 PM EDT) Anatomical Region Laterality Modality Lower Extremities, Ankle Right Radiogr aphic Imaging 03/08/2021 5:24 PM EDT Narrative 03/09/2021 7:40 [place] [address] Name: BRAXTON SOW Exam Date: 03/08/2021 : 1995 Age 25 Gender: F Physician: MAURICIO RICHARD Facility: [facility] Facility HSV: Outpatient Exam: ANKLE 3V RT Right ankle THREE VIEW HISTORY: Pain. FINDINGS: Three views show no evidence of an acute, displaced fracture or dislocation of the visualized bony architecture. The joint spaces appear normal. IMPRESSION: Unremarkable exam. Dictated By: TITO LOVE Transcribed By: Paolo Love Transcribed On: 03/09/2021 7:30 AM Electronically signed by: TITO LOVE 03/09/2021 Thank you for referring BRAXTON SOW to [facility]. Legally authenticated by KATE CARLOS 2021-03-09 07:30:26 Procedure Note Provider, [place] - 03/09/2021 [place] [address] Name: BRAXTON SOW Exam Date: 03/08/2021 : 1995 Age 25 Gender: F Physician: MAURICIO RICHARD Facility: [facility] Facility HSV: Outpatient Exam: ANKLE 3V RT Right ankle THREE VIEW HISTORY: Pain. FINDINGS: Three views show no evidence of an acute, displaced fractureor dislocation of the visualized bony architecture. The joint spaces appear normal. IMPRESSION: Unremarkable exam. Dictated By: TITO LOVE Transcribed By: Paolo Love Transcribed On: 03/09/2021 7:30 AM Electronically signed by: TITO LOVE 03/09/2021 Thank you for referring BRAXTON SOW to [facility]. Legally authenticated by KATE CARLOS 2021-03-09 07:30:26 us [facility] [place] Provider IMG XR PROCEDURES Fi nal Result documented in this encounter Visit Diagnoses Not on filedocumented in this encounter Additional Health Concerns Assessment Noted Time PHQ-9 Depression Total Score: 18 021 9:56 AM EDT documented as of this encounter Care Teams Preparation Operator Relationship Specialty Start Date End Date Sushila Davila MD [address] [place] [address] PCP - General Family Medicine 02/07/21 documented as of this encounter
--- OUTSIDE RECORDS SUMMARY | 2025-02-15 15:17 | XMS_ITS | Encounter Summary ---
Author Organization [facility] Address [address] [place] [address] Care Team Providers Care Property Manager Name Role Phone Sushila Davila MD Primary Care Provider [phone] Reason for Visit * Reason Onset Date Comments Med Refill 09/13/2024 Encounter Details Date Type Department Care Team (Late st Contact Info) Description 09/13/2024 Refill [facility] [address] [place] [address] Ami Soto, [employer]ATION [employer]OLE OFFICER [address] [place] [address] BMI 35.0-35.9,adult Social History Tobacco [...] place to sleep or slept in a intermediate (including now)? No 06/11/2024 PHQ-9 Answer Date [...] any time in the past [address] [facility], were you homeless or living in a intermediate (including now)? No 08/20/2024 Utilities Answer Date [...] Assessment Noted Time PHQ-9 Depression Total Score: 025 7:30 AM EST A fall risk assessment has been complete d for the patient 02/21/2023 2:55 PM EDT A Body Mass Index follow-up plan has been documented for the patient 08/20/2024 8:26 AM EST documented as of this encounter Care Teams Property Manager Relationship Specialty Start Date End Date Sushila Davila MD [address] [place] [address] PCP - General Family Medicine 02/07/21 documented as of this encounter
--- OUTSIDE RECORDS SUMMARY | 2025-02-15 15:17 | XMS_ITS | Data Portability ---
Author Organization [facility] [place], [facility] Address [address] [place] [address] Care Team Providers Care Sociology Adjunct Instructor Name Role Phone SEBASTIEN BRICENO Primary Care Provider Assessment Encounter Date Assessment Date Assessment LastModified by Organization Details LastModified Time 03/15/2019 03/15/2019 ASSESSMENT: Right foot contusion. PLAN: I think she is already recovering. We will check her back again in 3 weeks to ensure that she is still having any trouble and if so I think we can put her in MMI. [email or web address] Not available 03/15/2019 17:03:56 04/07/2019 04/07/2019 ASSESSMENT: Contusion right foot with history of old arthroscopy. PLAN: We will get her ankle brace for her comfort and check her again in a month. She is also going to ask for the release to get old records for review ankle arthroscopy. [email or web address] Not available 04/07/2019 19:27:10 05/26/2019 05/26/2019 Discomfort, right ankle. She has brought in some pictures from her prior arthroscopy. It looks like she had a debridement of the anterolateral ankle joint over the distal anterior tib-fib ligament. She reports that, that did help her at the time. Assessment remains that of contusion of her right ankle, which she is slowly recovering from. I think having her see a therapist for a home instruction in ankle rehab would be appropriate. We will plan on checking her back in a month. [email or web address] Not available 05/27/2019 01:35:14 Plan of Treatment Reminders Order Date Submit Date Provider Last Modified By Organization Details Last Modified Time Details Appointments None record ed. Lab None record ed. Referral None record ed. Procedures None record ed. Surgeries None record ed. Imaging None record ed. Medication Orders None record ed. Patient TargetsNo targets recorded. Patient InstructionsNo instructions recorded. Reason for Referral None Reported. Results Created Date Observation Date Name Description Value Unit Range Abnormal Flag Note LastModifiedBy Organization Detail LastModifiedTime 03/16/20 19 02/22/2019 XR, foot, 3 or more view No observ ation record ed. BARCODE [facility] [address] , [place], [address], 03/16/2019 10:38:43 Result Notes None recorded. Problems Name Problem SNOMED Code Status Onset Date Resolution Date Notes Provider Name and Address Organization Details Recorded Time Urinary tract infectiou s disease 99258308 Active 2015 From Automated Load;Provi ritu: Phillips, Jose;St atus: Active Not Available [facility] 7 02:48:19 Low back pain 556949519 Active 2015 From Automated Load;Provi ritu: Phillips, Jose;St atus: Active Not Available [facility] 7 08:29:40 Problem Notes None recorded. Procedures Surgical History Date Name Laterality Status Provider Name and Address Organization Details Recorded Time Orthopedic Surgery completed Eneida Murdock [facility] 03/15/2019 08:32:03 Imaging Results None recorded. Procedure Notes None recorded. Medical Equipment None Reported. Allergies Allergen ID Allergen Name Allergen Category Reaction Reaction Severity Criticality Documentation Date Start Date Code Code System Note Provider Name and Address Organization Details Recorded Time 677134 naproxen medicatio n Not available Not available Not available 03/15/2019 7258 RxNorm Eneida Murdock [facility] 9 08:28:24 Medications Name Sig Start Date Stop Date Status Note LastModified by Organization Details LastModified Time Ceftin 250 mg tablet Two times a day 03/15 completed Frequency: bid;Medica tion Descriptio n: cefuroxime ; Route:oral ; refills:0 Not Available Not Available Not Available naproxen 500 mg tablet Two times a day 03/15 completed Frequency: bid;Alt Frequency: prn;Medica tion Descriptio n: naproxen; Dosage:1; Route:oral ; refills:0 Not Available Not Available Not Available Migraine Relief active Not Available Not Available Not Available Zofran (base) 03/15 completed Medication Descriptio n: ondansetro n; refills:0 Not Available Not Available Not Available Vitals Date Recorded Body height Body mass index (BMI) Body weight Systolic And Diastolic Provider Name and Address Organization Details Last Updated DateTime 03/15/2019 175.26 cm 26 kg/m2 96989.66 g 102/76 mm[Hg] Eneida Murdock [facility] 03/15/2019 08:28:09 Date Recorded Body height Body mass index (BMI) Body weight Systolic And Diastolic Provider Name and Address Organization Details Last Updated DateTime 04/07/2019 175.26 cm 26 kg/m2 81783.26 g 120/80 mm[Hg] Eneida Murdock [facility] 04/07/2019 15:19:57 Date Recorded Body height Body mass index (BMI) Body weight Systolic And Diastolic Provider Name and Address Organization Details Last Updated DateTime 05/26/2019 175.26 cm 26 kg/m2 93764.26 g 112/76 mm[Hg] Eneida Murdock [facility] 05/26/2019 08:55:04 Social History Question Answer Notes LastModified by Organizat ion Details LastModified Time Tobacco Smoking Status Never Smoker Eneida Murdock [facility] 03/15/2019 08:29:13 Accident Related Injury Yes [email or web address] Information not available 03/15/2019 What Is Your Level Of Caffeine Consumption? Occasional [email or web address] Information not available 03/15/2019 How Much Tobacco Do You Chew? None [email or web address] Information not available 03/15/2019 Which Of Your Hands Is Dominant? Right [email or web address] Information not available 03/15/2019 Rate The Severity Of Your Symptoms: (0-10 With 0=none And 10=worst Possible) 9 [email or web address] Information not available 05/26/2019 When Are Your Symptoms The Worst? Night Day Neither Night [email or web address] Information not available 05/26/2019 Date Of Injury: 02/22/2019 [email or web address] Information not available 03/15/2019 Have You Been Treated For This Problem Before? Yes [email or web address] Information not available 03/15/2019 How Long Have You Had These Symptoms? 02/22/2019 [email or web address] Information not available 03/15/2019 Will This Be Filed As Workers' Compensation? Yes [email or web address] Information not available 04/07/2019 What Was The Date Of Your Most Recent Tobacco Screening? 03/15/2019 [email or web address] Information not available 03/15/2019 How Much Tobacco Do You Smoke? No [email or web address] Information not available 03/15/2019 How Many Years Have You Smoked Tobacco? 0 [email or web address] Information not available 03/15/2019 Work Related Injury? Yes [email or web address] Information not available 04/07/2019 Sex: Unknown Functional Status Question Answer Note LastModified by Organizat ion Details LastModified Time Do you use any illicit or recreational drugs? No [email or web address] Information not available 03/15/2019 What is your level of alcohol consumption? None [email or web address] Information not available 03/15/2019 Do you or have you ever used smokeless tobacco? Never used smokeless tobacco [email or web address] Information not available 03/15/2019 Are you currently employed? 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 Never used electronic cigarettes [email or web address] Information not available 03/15/2019 Mental Status None recorded. Family History Relationship Description Onset Age of this Age Resolved Age Notes LastModified by Organization Details LastModified Time Unspecified Relation Harmful pattern of use of alcohol [email or web address] Not available 03/15 08:37:32 Unspecified Relation Anxiety disorder [email or web address] Not available 03/15 08:37:39 Unspecified Relation Arthritis [email or web address] Not available 03/04 08:37:44 Unspecified Relation Asthma [email or web address] Not available 2018 08:37:50 Unspecified Relation Hypertensive disorder [email or web address] Not available 03/15 08:37:58 Unspecified Relation Kidney disease [email or web address] Not available 03/15 08:38:06 Medical History Condition Response Allergies/Hayfever Y Anxiety/Depression Y Other N Gout N Thyroid Disease N Kidney Stones N Heart Conditions N Hernia N Migraines Y COPD N Glaucoma N Pneumonia N Skin Problems N Immune System Disorder N Anesthesia Complications N Heart Attack ([place]) N Mental Illness N Neurological Problems N Diabetes N Rheumatic Fever N Bleeding Disorder N Arthritis Y Seizures/Epilepsy N Blood Clot N Tuberculosis N Genetic Disorder N AIDS/HIV N Cancer N Stroke N Asthma Y Blood Thinners N Alcohol Overuse/Alcohol Abuse N Sleep Apnea N High Cholesterol N Liver Disease N Included as Review of Systems Y Hypertension N Osteoporosis N Kidney Disease N Gynecological HistoryNo gynecological history recorded. Obstetrics History GPAL:G 0 P 0 0 0 0 Past Encounters Encounter ID Performer Location Encounter Start Date Encounter Closed Date Diagnosis/Indication Diagnosis SNOMED-CT Code Diagnosis ICD10 Code Diagnosis Note [id number] [facility] [address] 11/04/2016 23:01:57 11/04/2016 23:01:57 [id number] ALDAIR SMITH MD [facility] [address] [address] 03/15/2019 08:14:17 03/15/2019 08:56:18 Contusion of right foot 4221042254 [id number] S90.31XA [id number] ALDAIR SMITH MD [facility] [address] [address] 04/07/2019 14:00:10 04/07/2019 16:06:20 Contusion of right ankle 1337282171 6918637 S90.01XA [id number] ALDAIR SMITH MD [facility] [address] [place] [address] 05/26/2019 08:17:51 05/26/2019 10:09:01 Contusion of right ankle [id number] 3443073 S90.01XD Health Concerns Section Related Observation LastModified by Organization Detai ls LastModified Time None Recorded Concern Status LastModified by Organization Details LastModified Time None Recorded Advance Directives Directive None Recorded Payers Insurance Date Sequence Insurance Name Policy Number Policy Tavera Covered Member ID Tavera Member ID Guarantor Name 03/05/2019 DAVIDSON Saeed Notes Date Note Type Note Provider Name and Address Organization Details Recorded Time 03/15/2019 text/html Had a history of 4 boxes falling on her right foot on 02/22/2019. She has been able to continue to work. 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 Complains of some discomfort as she stands and walks; however, has been able to complete her full job without too much difficulty. ALDAIR SMITH MD [address] [place] [address] [place], [address], [facility] 03/17/2019 09:00:59 04/07/2019 text/html She has a histor y of something dropped on heavy object, dropped on her right foot back on February 22. 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 She has been able to continue to work since then. She also has a history of prior ankle arthroscopy done at . She says the discomfort she is having in her foot is somewhat reminiscent of that. She points to the dorsum of her right foot as being the area of her discomfort. ALDAIR SMITH MD [address] [place] [address] [place], [address], [facility] 04/08/2019 08:54:26 05/26/2019 text/html She has been abl e to work while wearing her ankle brace. Still complains similar pain anteriorly. ALDAIR SMITH MD [address] [place] [address] [place], [address], [facility] 05/31/2019 08:20:46 OBGyn Episode No OBEpisode recorded.
--- OUTSIDE RECORDS SUMMARY | 2025-02-15 15:17 | XMS_ITS | Encounter Summary ---
Author Organization [facility] Address [address] [place] [address] Care Team Providers Care Real Estate Inspector Name Role Phone Sushila Davila MD Primary Care Provider [phone] Reason for Visit * Reason Onset Date Comments Med Refill 11/09/2024 Encounter Details Date Type Department Care Team (Late st Contact Info) Description 11/09/2024 Refill [facility] [address] [place] [address] Sushila Davila MD [address] [place] [address] BMI 35.0-35.9,adult Social History Tobacco [...] place to sleep or slept in a [place] (including now)? No 06/11/2024 PHQ-9 Answer Date [...] time in the past [address] [facility], were you homeless or living in a [place] (including now)? No 08/20/2024 Utilities Answer Date [...] documented as of this encounter Care Teams Real Estate Inspector Relationship Specialty Start Date End Date Sushila Davila MD [address] [place] [address] PCP - General Family Medicine 02/07/21 documented as of this encounter
[2025-02-15 15:35] LABS: Hematocrit 40.4 % (37.0-47.0); Hemoglobin 13.1 g/dL (12.2-16.2); Immature Granulocytes % 0.2 %; Mean Corpuscular HGB Conc 32.4 g/dL (31.8-35.4); Mean Corpuscular Hemoglobin 27.8 pg (27.0-31.2); Mean Corpuscular Volume 85.8 fl (81-99); Nucleated Red Blood Cells % 0 %; Platelet Count 286 K/mm3 (142-424); Red Blood Count 4.71 M/mm3 (4.20-5.40); Red Cell Distribution Width-SD 40.1 fL; White Blood Count 9.4 K/mm3 (4.8-10.8)
--- NOTE | 2025-02-15 15:38 | ECG_ITS ---
APPROVED REPORT Exam: Resting ECG HR:58 bpm ECG Measurements Heart Rate 58 AXES KS 147 P -7 QRSd 94 QRS 24 QT 438 T 13 QTc 434 Conclusion SINUS BRADYCARDIA BORDERLINE ECG UNCONFIRMED REPORT Electronically signed by : Ean Benoit MD 02/16/2025 16:16:53
[2025-02-15 16:05] LABS: Hemoglobin A1C 6.2 % (4.0-6.0)
[2025-02-15 16:41] LABS: Anion Gap 18.8 mEq/L (5-15); Blood Urea Nitrogen 12 mg/dl (7-17); Calcium 10.0 mg/dl (8.4-10.2); Carbon Dioxide 26 mmol/L (22.0-30.0); Chloride 98 mmol/L (98-107); Creatinine,Serum 0.90 mg/dl (0.52-1.04); Estimated Glomerular Filt Rate 74 ml/min (>60); GFR (African American) 90 ML/MIN (>60); Glucose 96 mg/dl (74-100); Potassium 3.8 mmoL/L (3.5-5.1); Sodium 139 mmol/L (136-145)
== END 2025-02-15 23:59 | disposition home or self-care (01) ==
LOC: LAB 15:16
PROVIDERS: Visit Provider Orthopaedic Surgery
DX: R73.09 Other abnormal glucose (principal); Z01.818 Encounter for other preprocedural examination; Z87.898 Personal history of other specified conditions
CPT/HCPCS: 36415; 80048; 83036; 85025; 93005